=== PATIENT | male | born 1995 | race Caucasian/White ===

== ENCOUNTER 2019-03-17 07:25 | Day surgery (SDC) | payer OTHER ==
[2019-03-17] MEDS ORDERED: Sodium Chloride 0.9% 10 ML Syringe FLUSH PRN (07:30)
[2019-03-17] MEDS ORDERED: Midazolam 1 MG/ML 2 ML SDV ONE ×2 (07:51→08:25)
[2019-03-17] MEDS ORDERED: fentaNYL 100 MCG/2 ML SDV ONE ×2 (07:51→08:25)
[2019-03-17] MEDS ORDERED: Propofol 200 MG/20 ML SDV ONE ×3 (07:52→08:46)
[2019-03-17] MEDS ORDERED: Lactated Ringers 1,000 ML IV SCH (08:00)
--- NOTE | 2019-03-17 08:21 | PCM.HP ---
H&P History of Present Illness - General Date of Service: 03/17/19 Admit Problem/Dx: Admission Diagnosis/Problem Admission Diagnosis/Problem Trigger finger Source of Information: Patient History Limitations: Reports: No Limitations - History of Present Illness Onset of Symptoms: Reports: Gradual Duration of Symptoms: Reports: Chronic, Getting Worse Location: Reports: Upper Extremity, Right Quality: Reports: Pressure, Throbbing Severity: Moderate Improves with: Reports: Immobilization Worsens with: Reports: Movement Associated Symptoms: Reports: No Other Symptoms Right Finger-Ring Pain Score (Numeric/FACES): 4 - Related Data Allergies/Adverse Reactions: Allergies Allergy/AdvReac Type Severity Reaction Status Date / Time No Known Allergies Allergy Verified 03/17/19 08:00 Home Medications: Home Meds . [No Known Home Meds] 03/17/19 [History] H&P Review of Systems - Review of Systems: Review Of Systems: See Below General: Reports: No Symptoms HEENT: Reports: No Symptoms Pulmonary: Reports: No Symptoms Cardiovascular: Reports: No Symptoms Gastrointestinal: Reports: No Symptoms Genitourinary: Reports: No Symptoms Musculoskeletal: Reports: Hand Pain Skin: Reports: No Symptoms Psychiatric: Reports: No Symptoms Neurological: Reports: No Symptoms Hematologic/Lymphatic: Reports: No Symptoms Immunologic: Reports: No Symptoms Exam - Exam Exam: See Below - Vital Signs Vital Signs: Last Vital Signs Temp 36.6 C 03/17/19 08:13 Pulse 75 03/17/19 08:13 Resp 20 03/17/19 08:13 BP 121/87 03/17/19 08:13 Pulse Ox 98 03/17/19 08:13 Weight: 81.647 kg - Exam General: Alert, Oriented, Cooperative, Mild Distress HEENT: Conjunctiva Clear, Posterior Pharynx Clear, Pupils Equal, Pupils Reactive Neck: Supple, Trachea Midline Lungs: Clear to Auscultation, Normal Respiratory Effort Cardiovascular: Regular Rate, Regular Rhythm, Normal S1, Normal S2 GI/Abdominal Exam: Normal Bowel Sounds Extremities: Limited Range of Motion, Other Peripheral Pulses: 2+: Radial (R) Skin: Warm, Dry, Intact Neuro Extensive - Mental Status: Alert, Oriented x3, Normal Mood/Affect, Normal Cognition, Memory Intact Psychiatric: Alert, Normal Affect, Normal Mood (nodule felt under a1 ricardo of ring and long fingers right hand) - Problem List (1) Trigger finger SNOMED Code(s): 830309406 ICD Code: M65.30 - TRIGGER FINGER, UNSPECIFIED FINGER Status: Acute Current Visit: Yes Qualifiers: Trigger finger location: ring finger Laterality: right Qualified Code(s) : M65.341 - Trigger finger, right ring finger Problem List Initiated/Reviewed/Updated: Yes Orders Last 24hrs: Active Orders 24 hr Category Date Time Status Patient Status [ADT] Routine ADT 03/17/19 07:30 Active Peripheral IV Care [RC] . DIRECTED Care 03/17/19 07:30 Active Verify Patient Consent Obtain [RC] ASDIRECTED Care 03/17/19 07:30 Active Lactated Ringers [Ringers, Lactated] 1,000 ml Med 03/17/19 08:00 Active IV ASDIRECTED Sodium Chloride 0.9% [Saline Flush] Med 03/17/19 07:30 Active 10 ml FLUSH ASDIRECTED PRN Peripheral IV Insertion Adult [OM.PC] Routine Oth 03/17/19 07:30 Ordered Medication Orders Lactated Ringer's (Ringers, Lactated) 1,000 mls @ 125 mls/hr IV ASDIRECTED RHIANNA Sodium Chloride (Saline Flush) 10 ml FLUSH ASDIRECTED PRN PRN Reason: Keep Vein Open Assessment/Plan Comment:: trigger finger release today with adore block two week follow up keep clean two days
[2019-03-17] MEDS ORDERED: Ketorolac 30 MG/ML SDV ONE (08:25)
[2019-03-17] MEDS ORDERED: Lidocaine 0.5% 50 ML SDV ONE (08:25)
--- NOTE | 2019-03-17 09:02 | PCM.OPNOTE ---
- General Post-Op/Procedure Note Date of Surgery/Procedure: 03/17/19 Operative Procedure(s): right long and ring finger trigger finger release Pre Op Diagnosis: right long and ring finger trigger finger Post-Op Diagnosis: same Anesthesia Technique: MAC Primary Surgeon: Anderson Street Anesthesia Provider: Letitia Pichardo EBLuciana in mLs: 25 Complications: none Condition: Good
--- NOTE | 2019-03-21 12:42 | PCM.SN ---
- Free Text/Narrative Note: This patient recieved a toal of 2ml or 100mcg of fentanyl and 30mg of toradyl. Letitia Pichardo SOCIAL SCIENCE ANALYST
--- NOTE | 2019-03-25 14:13 | OR ---
Date of Procedure: 03/17/2019 PREOPERATIVE DIAGNOSIS: Right hand ring and long finger trigger fingers. POSTOPERATIVE DIAGNOSIS: Right hand ring and long finger trigger fingers. PROCEDURE: Trigger finger release, right long and ring finger. ANESTHESIA: [place] block plus conscious sedation. FLUIDS: Lactated Ringer's solution. ESTIMATED BLOOD LOSS: Less than 5 mL. COMPLICATIONS: None. SPECIMEN: None. DISCHARGE DISPOSITION: Stable to PACU. INDICATIONS: The patient was seen preoperatively in the clinic. 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 He was having increasing pain from triggering on the above- mentioned fingers. Risks and benefits of the procedure were explained to the patient and informed consent was obtained. DESCRIPTION OF PROCEDURE: The patient was seen preoperatively by myself and the Anesthesia staff in the preoperative holding area where the operative site was marked. He was brought to the operative suite, where the Anesthesia staff provided [place] block, plus conscious sedation was administered. All extremities were noted to be well padded. A 1 cm incision was made over the A1 ricardo starting with the ring finger. Bleeding was controlled with Bovie electrocautery. Self-retaining retractor was used. The A1 ricardo was identified and divided using a #15 blade. I then exteriorized the tendon making sure that the ricardo was released. I performed the same procedure on the long finger. We then irrigated copiously with saline and then closed with 3-0 nylon. We then applied a sterile dressing. The [place]ne block was let down per Anesthesia, and the patient was taken to the PACU in stable condition. DANILO Street DO, DO /[id number]
--- NOTE | 2019-03-30 10:24 | OR ---
Date of Procedure: 03/17/2019 PREOPERATIVE DIAGNOSIS: Right hand ring and long finger trigger fingers. POSTOPERATIVE DIAGNOSIS: Right hand ring and long finger trigger fingers. PROCEDURE: Trigger finger release, right long and ring finger. ANESTHESIA: [place] block plus conscious sedation. FLUIDS: Lactated Ringer's solution. ESTIMATED BLOOD LOSS: Less than 5 mL. COMPLICATIONS: None. SPECIMEN: None. DISCHARGE DISPOSITION: Stable to PACU. INDICATIONS: The patient was seen preoperatively in the clinic. 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 He was having increasing pain from triggering on the above- mentioned fingers. Risks and benefits of the procedure were explained to the patient and informed consent was obtained. DESCRIPTION OF PROCEDURE: The patient was seen preoperatively by myself and the Anesthesia staff in the preoperative holding area where the operative site was marked. He was brought to the operative suite, where the Anesthesia staff provided [place] block, plus conscious sedation was administered. All extremities were noted to be well padded. A 1 cm incision was made over the A1 ricardo starting with the ring finger. Bleeding was controlled with Bovie electrocautery. Self-retaining retractor was used. The A1 ricardo was identified and divided using a #15 blade. I then exteriorized the tendon making sure that the ricardo was released. I performed the same procedure on the long finger. We then irrigated copiously with saline and then closed with 3-0 nylon. We then applied a sterile dressing. The [place] block was let down per Anesthesia, and the patient was taken to the PACU in stable condition. DANILO Street DO, DO /[id number]
== END 2019-03-17 10:18 | disposition home or self-care (01) ==
LOC: LL.SDS 07:25
PROVIDERS: ATTEND Orthopaedic Surgery
DX: M65.341 Trigger finger, right ring finger (principal); M65.331 Trigger finger, right middle finger
CPT/HCPCS: J1885; J2001; J2250; J2704; J3010; J7120

== ENCOUNTER 2019-04-06 17:10 | Emergency (ER) | payer OTHER ==
[2019-04-06] MEDS ORDERED: Acetaminophen 325 MG Tab PO ONE (17:49)
[2019-04-06] MEDS ORDERED: traMADol 50 MG Tab PO ONE (17:49)
--- NOTE | 2019-04-06 17:59 | EDM.PDOC ---
ED HPI GENERAL MEDICAL PROBLEM - General Chief Complaint: Upper Extremity Injury/Pain Stated Complaint: hand pain Time Seen by Provider: 04/06/19 17:41 Source of Information: Reports: Patient History Limitations: Reports: No Limitations - History of Present Illness INITIAL COMMENTS - FREE TEXT/NARRATIVE: Patient had recent trigger finger release surgery performed on right hand. Was seen by from [facility] for recheck and was given OK to return to work on limited duty. Patient went to [employer] for today's shift and developed increasing pain during his shift. He blames the current cold temperature outside (he was assigned to outdoor duties) in the 40s/rain as contributing factor for the pain. Unable to continue with his shift, sent here for evaluation. Per patient, recommended a month off for best comfort/ recovery plan but patient feared he would get bored. Original hand issue was felt to be work-related. Patient needs further restrictions. No increased redness noted around surgical sites. No drainage. No complaints of increased numbness/tingling. Right Hand Pain Score (Numeric/FACES): 6 - Related Data Allergies Allergy/AdvReac Type Severity Reaction Status Date / Time No Known Allergies Allergy Verified 04/06/19 17:22 Home Meds: Home Meds . [No Known Home Meds] 04/06/19 [History] Past Medical History Psychiatric History: Reports: None - Past Surgical History HEENT Surgical History: Reports: Oral Surgery Oncologic Surgical History: Reports: Other (See Below) (Trigger finger surgery right hand fingers 3&4) Social & Family History - Tobacco Use Smoking Status *Q: Current Every Day Smoker Years of Tobacco use: 4 Packs/Tins Daily: 1 - Caffeine Use Caffeine Use: Reports: Coffee - Recreational Drug Use Recreational Drug Use: No Review of Systems - Review of Systems Review Of Systems: ROS reveals no pertinent complaints other than HPI. ED EXAM, GENERAL - Physical Exam Exam: See Below Exam Limited By: No Limitations General Appearance: Alert, WD/WN, No Apparent Distress Eye Exam: Bilateral Eye: EOMI, PERRL Head: Atraumatic, Normocephalic Neck: Supple Respiratory/Chest: No Respiratory Distress Extremities: Other (Exam of right hand/fingers shows healing incisions palm aspect of hand x2 No erythema/swelling/drainage. Able to wiggle fingers, has limitations due to pain/post-op changes fingers 3&4. Normal color, good cap refill. ) Neurological: Alert, Oriented, Normal Cognition, Normal Gait Psychiatric: Normal Affect, Normal Mood Course - Vital Signs Last Recorded V/S: Last Vital Signs Temp 36.7 C 04/06/19 17:10 Pulse 94 04/06/19 17:10 Resp 18 04/06/19 17:10 BP 142/97 H 04/06/19 17:10 Pulse Ox 99 04/06/19 17:10 - Orders/Labs/Meds Meds: Medications Discontinued Medications Generic Name Dose Route Start Last Admin Trade Name King PRN Reason Stop Dose Admin Acetaminophen 650 mg 04/06/19 17:49 Tylenol PO 04/06/19 17:50 NOW ONE Tramadol HCl 50 mg 04/06/19 17:49 Ultram PO 04/06/19 17:50 ONETIME ONE - Re-Assessments/Exams Free Text/Narrative Re-Assessment/Exam: 04/06/19 18:06 Will take patient off of duty today and tomorrow. To follow up with Dr. Street either tomorrow or Thursday for recheck/new written work restrictions. Patient has not taken any pain medication recently. Given single dose Tramadol and Tylenol in ER. Departure - Departure Time of Disposition: 17:55 Disposition: Home, Self-Care 01 Condition: Good Clinical Impression: Hand pain, right - Discharge Information *PRESCRIPTION DRUG MONITORING PROGRAM REVIEWED*: Not Applicable *COPY OF PRESCRIPTION DRUG MONITORING REPORT IN PATIENT NURY: Not Applicable Referrals: Anderson Street, [Primary Care Provider] - Forms: ED Department Discharge Additional Instructions: Follow up with Dr. Street tomorrow or Thursday. Obtain updated work restriction paperwork/treatment plan. Take Tylenol or Ibuprofen or Aleve to help with discomfort. Keep are protected and continued with exercises recommended by PT.
== END 2019-04-06 18:10 | disposition home or self-care (01) ==
LOC: LL.ED 17:10
DX: M79.641 Pain in right hand (principal); F17.210 Nicotine dependence, cigarettes, uncomplicated
CPT/HCPCS: 99283; A9270-GY

== ENCOUNTER 2019-10-13 18:28 | Emergency (ER) | payer OTHER ==
--- NOTE | 2019-10-13 19:04 | EDM.PDOC ---
ED HPI GENERAL MEDICAL PROBLEM - General Chief Complaint: General Stated Complaint: LEFT HAND INJURY Time Seen by Provider: 10/13/19 18:45 Source of Information: Reports: Patient History Limitations: Reports: No Limitations - History of Present Illness INITIAL COMMENTS - FREE TEXT/NARRATIVE: Dropped 65 lbs on left index finger Now with increased pain and swelling Limited ROM of finger Onset: Today, Sudden Treatments GROCERY CADDY: Reports: NSAIDS - Related Data Allergies Allergy/AdvReac Type Severity Reaction Status Date / Time No Known Allergies Allergy Verified 04/06/19 17:22 Home Meds: Home Meds . [No Known Home Meds] 04/06/19 [History] Past Medical History Musculoskeletal History: Reports: Other (See Below) Other Musculoskeletal History: R trigger finger with repair. Psychiatric History: Reports: None - Past Surgical History HEENT Surgical History: Reports: Oral Surgery Oncologic Surgical History: Reports: Other (See Below) Social & Family History - Tobacco Use Smoking Status *Q: Current Every Day Smoker Years of Tobacco use: 2 Packs/Tins Daily: 0.2 - Caffeine Use Caffeine Use: Reports: Energy Drinks - Recreational Drug Use Recreational Drug Use: No ED ROS GENERAL - Review of Systems Review Of Systems: See Below Musculoskeletal: Reports: Other (left index finger pain and swelling) ED EXAM, GENERAL - Physical Exam Exam: See Below Extremities: Joint Swelling, Limited Range of Motion, Other (Left index finger with swelling in finger Mild ecchymosis over flexor surface of distal finger Limitd ROM at DIP and PIP joint Nail intact Sensory intact) Course - Vital Signs Last Recorded V/S: Last Vital Signs Temp 36.8 C 10/13/19 18:34 Pulse 72 10/13/19 18:34 Resp 16 10/13/19 18:34 BP 141/92 H 10/13/19 18:37 Pulse Ox 97 10/13/19 18:34 - Orders/Labs/Meds Orders: Active Orders 24 hr Category Date Time Status Fingers Second Digit Lt F1 [CR] Stat Exams 10/13/19 18:41 Ordered - Radiology Interpretation Free Text/Narrative:: Xray: No obvious fracture Departure - Departure Time of Disposition: 19:15 Disposition: Home, Self-Care 01 Clinical Impression: Finger contusion Qualifiers: Encounter type: initial encounter Finger: index finger Damage to nail status: without damage Laterality: left Qualified Code(s): S60.022A - Contusion of left index finger without damage to nail, initial encounter - Discharge Information *PRESCRIPTION DRUG MONITORING PROGRAM REVIEWED*: Not Applicable *COPY OF PRESCRIPTION DRUG MONITORING REPORT IN PATIENT NURY: Not Applicable Instructions: Contusion, [id number] Referrals: PCP,None [Primary Care Provider] - Additional Instructions: Ice Elevate Wear splint Rx Tylenol #3 One every 6 hours for pain Follow up in clinic - My Orders Last 24 Hours: My Active Orders 10/13/19 18:41 Fingers Second Digit Lt F1 [CR] Stat - Assessment/Plan Last 24 Hours: My Active Orders 10/13/19 18:41 Fingers Second Digit Lt F1 [CR] Stat
== END 2019-10-13 19:20 | disposition home or self-care (01) ==
LOC: LL.ED 18:28
DX: S60.022A Contusion of left index finger without damage to nail, initial encounter (principal); F17.210 Nicotine dependence, cigarettes, uncomplicated; W20.8XXA Other cause of strike by thrown, projected or falling object, initial encounter
CPT/HCPCS: 73140-F1; 99281; 99283-25

== ENCOUNTER 2020-07-15 21:27 | Emergency (ER) | payer BC, OTHER ==
--- NOTE | 2020-07-15 21:49 | EDM.PDOC ---
ED HPI GENERAL MEDICAL PROBLEM - General Chief Complaint: Back Pain or Injury Stated Complaint: Back pain, Breathing pain Time Seen by Provider: 07/15/20 21:32 Source of Information: Reports: Patient History Limitations: Reports: No Limitations - History of Present Illness INITIAL COMMENTS - FREE TEXT/NARRATIVE: Patient comes to ER with sharp left sided chest pain that started gradually while working at [employer] yesterday. Patient lifts "heavy things" as part of his duties at [employer] and figured that he pulled something while lifting. Pain has worsened over course of today. Feels SOB due to increased pain with any breathing. Moving can make pain worse. No history of similar pain in past. Sometimes pain makes him feel lightheaded. No recent illnesses or other injuries. No fevers. No HEENT changes/vision changes/sore throat/cold symptoms Resp+ for pleuritic pain/pain with breathing left side. No cough/wheeze/sputum production CV negative for palpitations GI negative for nausea/emesis/bowel changes/blood in stools negative for acute changes/hematuria/UTI complaints Neuro negative for focal changes Back Pain Score (Numeric/FACES): 8 - Related Data Allergies Allergy/AdvReac Type Severity Reaction Status Date / Time No Known Allergies Allergy Verified 07/15/20 21:34 Home Meds: Home Meds Cyclobenzaprine [Flexeril] 10 mg PO TID PRN #15 tab 07/15/20 [Rx] traMADol HCl [Tramadol HCl] 50 mg PO Q6H PRN #20 tablet 07/15/20 [Rx] Past Medical History Musculoskeletal History: Reports: Other (See Below) Other Musculoskeletal History: R trigger finger with repair. Psychiatric History: Reports: None - Past Surgical History HEENT Surgical History: Reports: Oral Surgery Oncologic Surgical History: Reports: Other (See Below) Social & Family History - Tobacco Use Smoking Status *Q: Current Every Day Smoker Years of Tobacco use: 2 Packs/Tins Daily: 1 - Caffeine Use Caffeine Use: Reports: None - Recreational Drug Use Recreational Drug Use: No ED ROS GENERAL - Review of Systems Review Of Systems: Comprehensive ROS is negative, except as noted in HPI. ED EXAM, GENERAL - Physical Exam Exam: See Below Exam Limited By: No Limitations General Appearance: Alert, WD/WN, Moderate Distress Eye Exam: Bilateral Eye: EOMI, PERRL Ears: Hearing Grossly Normal Nose: No: Nasal Deformity, Nasal Swelling, Nasal Drainage Throat/Mouth: Normal Lips, Normal Voice, No Airway Compromise Head: Atraumatic, Normocephalic Neck: Supple Respiratory/Chest: No Respiratory Distress, Lungs Clear, Normal Breath Sounds, No Accessory Muscle Use, Chest Non-Tender (unable to reproduce chest pain complaint with palpation). No: Decreased Breath Sounds, Crackles, Rales, Rhonchi, Wheezing, Stridor, Pleural Rub, Accessory Muscle Use, Retractions, Splinting, Prolonged Expiration Cardiovascular: Regular Rate, Rhythm, No Murmur GI/Abdominal: Normal Bowel Sounds, Soft, Non-Tender, No Distention (Male) Exam: Deferred Rectal (Males) Exam: Deferred Back Exam: Normal Inspection. No: CVA Tenderness (L), CVA Tenderness (R), Muscle Spasm, Paraspinal Tenderness, Vertebral Tenderness Extremities: Normal Inspection, Normal Capillary Refill Neurological: Alert, Normal Cognition, Normal Gait, No Motor/Sensory Deficits Psychiatric: Anxious Skin Exam: Warm, Dry, Intact, Normal Color EKG INTERPRETATION EKG Date: 07/15/20 Time: 21:42 Rhythm: NSR Rate (Beats/Min): 74 [place]: Normal P-Wave: Present QRS: Normal ST-T: Normal QT: Normal Course - Vital Signs Last Recorded V/S: Last Vital Signs Temp 37.1 C 07/15/20 21:32 Pulse 100 07/15/20 21:32 Resp 12 07/15/20 21:32 BP 153/103 H 07/15/20 21:32 Pulse Ox 100 07/15/20 21:32 - Orders/Labs/Meds Orders: Active Orders 24 hr Category Date Time Status EKG Documentation Completion [RC] ASDIRECTED Care 07/15/20 21:34 Ordered Chest 2V [CR] Stat Exams 07/15/20 21:34 Ordered Labs: Laboratory Tests 07/15/20 07/15/20 Range/Units 21:42 21:42 WBC 6.9 (4.0-10.2) K/uL RBC 4.93 (4.33-5.41) M/uL Hgb 15.1 (13.1-16.8) g/dL Hct 40.4 (39.0-49.0) % MCV 81.9 L (84.0-98.0) fL MCH 30.6 (28.2-33.3) pg MCHC 37.4 H (31.7-36.0) g/dL RDW 12.0 (11.2-14.1) % Plt Count 205 (150-350) K/uL Neut % (Auto) 53.5 (45.0-80.0) % Lymph % (Auto) 35.2 (10.0-50.0) % [place] % (Auto) 8.7 (2.0-14.0) % Eos % (Auto) 2.3 (0.0-5.0) % Baso % (Auto) 0.3 (0.0-2.0) % Neut # (Auto) 3.67 (1.40-7.00) K/uL Lymph # (Auto) 2.42 (0.50-3.50) K/uL [place] # (Auto) 0.60 (0.00-1.00) K/uL Eos # (Auto) 0.16 (0.00-0.50) K/uL Baso # (Auto) 0.02 (0.00-0.20) K/uL POC Sodium 139 (138-146) mmol/L POC Potassium 4.1 (3.5-4.9) mmol/L POC Chloride 104 (98-109) mmol/L POC Total CO2 27 (24-29) mmol/L POC BUN 15 (8-26) mg/dL POC Creatinine 2.1 H (0.6-1.3) mg/dL POC Glucose 85 (70-105) mg/dL Meds: Medications Discontinued Medications Generic Name Dose Route Start Last Admin Trade Name Ozielq PRN Reason Stop Dose Admin Diazepam 5 mg 07/15/20 22:12 07/15/20 22:21 Valium. PO 07/15/20 22:13 5 mg ONETIME ONE Administration Hydromorphone HCl 0.5 mg 07/15/20 22:12 07/15/20 22:21 Dilaudid IM 07/15/20 22:13 0.5 mg ONETIME ONE Administration Ketorolac Tromethamine 60 mg 07/15/20 22:12 07/15/20 22:21 Toradol IM 07/15/20 22:13 60 mg ONETIME ONE Administration - Re-Assessments/Exams Free Text/Narrative Re-Assessment/Exam: 07/15/20 22:34 Chest xray did not show pneumothorax/pneumonia/focal changes. CBC unremarkable overall. BMP showed isolated Cr elevation of 2.1 Confirmed by repeating assay. No history of kidney issues. Not taking NSAIDS. No other reason for kidney injury. Not on muscle building supplements. Not taking other meds. Unable to perform DDimer on site due to lab mechanical issues. Sample sent to [facility] to be run. O2 sats on room air 100%. Given history of initial pain/development of pain and pattern this seems to be more likely a soft tissue/musculo-skeletal etiology related to patient's lifting at work. Will not make patient wait for results. He is aware that we are sending the test and is willing to return/discuss CTA to rule out PE if DDimer elevated. Pain is in chest area and appears to be above area of kidney thus kidney stone is not within the differential at this time. For now will give patient muscle relaxant and pain medication. To apple picker Flexeril and Tramadol tomorrow for PRN use. Off [employer] tomorrow and Thursday. Precautions reviewed prior to discharge. He is to return to the ER if he has worsening symptoms/SOB. BP improved prior to discharge. He is requested to follow up if pain is not significantly improved within 48 hours. Also to follow up within next 14 days for recheck of BP and creatinine levels. Patient agreeable with plan. Departure - Departure Time of Disposition: 22:30 Disposition: Home, Self-Care 01 Condition: Good Clinical Impression: Atypical chest pain, Elevated serum creatinine - Discharge Information *PRESCRIPTION DRUG MONITORING PROGRAM REVIEWED*: Not Applicable *COPY OF PRESCRIPTION DRUG MONITORING REPORT IN PATIENT NURY: Not Applicable Prescriptions: Cyclobenzaprine [Flexeril] 10 mg PO TID PRN #15 tab PRN Reason: Spasms traMADol HCl [Tramadol HCl] 50 mg PO Q6H PRN #20 tablet PRN Reason: Pain Instructions: Chest Wall Pain, [id number] Referrals: Maya Larkin PA-C [Primary Care Provider] - Forms: ED Department Discharge Additional Instructions: Follow up for recheck in 2 days and further work restrictions as needed if pain has not significantly improved. We will call you and have you come back if the DDimer is elevated as discussed--we would need to do a chest CT to rule out the possibility of a blood clot in the lungs. Follow up for recheck of your serum creatinine and blood pressure as both were high tonight. Have them rechecked some time later this week or the following week. Return the to ER for recheck if you have worsening problems/increased shortness of breath. Sepsis Event Note (ED) - Evaluation Sepsis Screening Result: No Definite Risk - Focused Exam Vital Signs: Vital Signs Temp Pulse Resp BP Pulse Ox 07/15/20 21:32 37.1 C 100 12 153/103 H 100 07/15/20 21:30 141/95 H - My Orders Last 24 Hours: My Active Orders 07/15/20 21:34 EKG Documentation Completion [RC] ASDIRECTED Chest 2V [CR] Stat - Assessment/Plan Last 24 Hours: My Active Orders 07/15/20 21:34 EKG Documentation Completion [RC] ASDIRECTED Chest 2V [CR] Stat
[2020-07-15] MEDS ORDERED: HYDROmorphone 0.5 MG/0.5 ML Syringe IM ONE (22:12)
[2020-07-15] MEDS ORDERED: Ketorolac 60 MG/2 ML SDV IM ONE (22:12)
[2020-07-15] MEDS ORDERED: Diazepam 5 MG Tab PO ONE (22:12)
== END 2020-07-15 22:46 | disposition home or self-care (01) ==
LOC: LL.ED 21:27
DX: R07.89 Other chest pain (principal); R74.8 Abnormal levels of other serum enzymes; F17.210 Nicotine dependence, cigarettes, uncomplicated
CPT/HCPCS: 36415; 71046; 80047; 85025; 93005; 96372; 99285; A9270; J1170; J1885